=== PATIENT | female | born 1945 | race Caucasian/White ===

== ENCOUNTER 2017-03-28 17:03 | Observation (INO) | payer MEDICARE, OTHER ==
[~2017-03-28] VITALS: Ht 160 cm; Wt 94.0 kg
[2017-03-28 17:23] VITALS: BP 165/79; PULSE 90; RESP 16; TEMP 97.7
--- NOTE | 2017-03-28 17:27 | PD ---
HPI Chief Complaint: fall Time Seen by Provider: 17:19 Travel History International Travel<30 days: No Contact w/Intl Traveler<30days: No Traveled to known affect area: No History of Present Illness HPI This is a 71-year-old female who reports a history of hypertension and hyperlipidemia. She presents via EMS for evaluation after a reported mechanical fall. 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 She was at the home of the patient and she tripped and fell, striking the back of her head against the ground. There was loss of consciousness. There have been complaints of headache as well as nausea and vomiting on route. The patient is amnesia to the events. 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 She does not remember falling. She is complaining of pain to the back of her head which is aching, constant. She endorses nausea. She denies any chest pain or shortness of breath, abdominal pain, back pain, neck pain, pain in the upper or lower extremities. She reports that she takes a baby aspirin a day. Denies any other anticoagulant use. Her last tetanus vaccination is unknown. She reports that her primary care physician is Dr. Jonna Wylie. [facility] Past Medical History Narrative Medical Hyperlipidemia, hypertension Social History Alcohol Use: Yes Tobacco Use: No Allergies-Medications (Allergen,Severity, Reaction): Coded Allergies: No Known Allergies (Unverified , 03/28/17) Reported Meds & Prescriptions Reported Meds & Active Scripts Active Reported Calcium (Oyster Shell) 500 Mg Tab 500 Mg PO BID Multi Vitamin Daily (Multiple Vitamin) 1 Tab Tab 1 Tab PO BID Vitamin B-12 (Cyanocobalamin) 500 Mcg Tab 500 Mcg PO DAILY Fluticasone Nasal [place] 50 Mcg/Act Naspr 2 [place] EACH NARE DAILY Timoptic Opth Drops (Timolol Opth Drops) 0.5 % Soln 1 Drop EACH EYE BID Latanoprost Opth Drops (Latanoprost) 0.005% Drops 2 Drop EACH EYE HS Refrigerate until opened. Metformin (Metformin HCl) 1,000 Mg Tab 1,000 Mg PO BID With meals Duloxetine DR (Duloxetine HCl) 60 Mg Capdr 60 Mg PO DAILY Atorvastatin (Atorvastatin Calcium) 40 Mg Tab 40 Mg PO HS Lisinopril-Hctz 20-25 Mg Tab 1 Tab PO BID Gabapentin 300 Mg Cap 300 Mg PO BID Omeprazole 20 Mg Tab 20 Mg PO DAILY Preservision Areds (Multiple Vitamins W/ Minerals) 1 Tab 2 Tab PO DAILY Acetaminophen Pm Caplet (Acetaminophen/Diphenhydramine) 1 Each Tablet 500 Mg PO BID Vitamin D-3 (Cholecalciferol) 2,000 Unit Tab 2,000 Units PO DAILY Vitamin B-12 (Cyanocobalamin) 500 Mcg Tab 500 Mcg PO DAILY Vitamin E (Vitamin E Mixed) 400 Unit Tablet 400 Units PO DAILY Review of Systems Except as stated in HPI: all other systems reviewed are Neg Physical Exam Narrative GENERAL: Pleasant well developed well-nourished female in no acute distress answering questions appropriately, cervical collar in place. She is alert and oriented 3. SKIN: Warm and dry. HEAD: Normocephalic. There is dried blood on the occiput. Unable to fully evaluate initially. EYES: Pupils equal and round reactive to light extraocular muscles are intact. No scleral icterus. No injection or drainage. ENT: No nasal bleeding or discharge. Mucous membranes pink and moist. NECK: Trachea midline. No JVD. CARDIOVASCULAR: Regular rate and rhythm. No murmur appreciated. RESPIRATORY: No accessory muscle use. Clear to auscultation. Breath sounds equal bilaterally. GASTROINTESTINAL: Abdomen soft, non-tender, nondistended. Hepatic and splenic margins not palpable. MUSCULOSKELETAL: No obvious deformities. Cervical collar in place. NEUROLOGICAL: Awake and alert. No obvious cranial nerve deficits. Motor grossly within normal limits. Normal speech. PSYCHIATRIC: Appropriate mood and affect; insight and judgment normal. Data Data Last Documented VS Vital Signs Date Time Temp Pulse Resp B/P Pulse Ox O2 Delivery O2 Flow Rate FiO2 03/28/17 19:06 74 16 134/65 95 Room Air 03/28/17 17:[address] Cerv Spine W/O Contrast (03/28/17 ) Ct Brain W/O Iv Contrast(Rout) (03/28/17 ) Complete Blood Count With Diff (03/28/17 17:24) Basic Metabolic Panel (Bmp) (03/28/17 17:24) Act Partial Throm Time (Ptt) (03/28/17 17:24) Prothrombin Time / Inr (Pt) (03/28/17 17:24) Electrocardiogram (03/28/17 ) Ckmb (Isoenzyme) Profile (03/28/17 17:24) Magnesium (Mg) (03/28/17 17:24) Troponin I (03/28/17 17:24) Lidocai-Epi 1%-1:100,000 Inj (Xylocaine- (03/28/17 17:30) Tetanus/Diphtheria Tox Adult (Tetanus/Di (03/28/17 17:30) Ondansetron Inj (Zofran Inj) (03/28/17 17:30) Morphine Inj (Morphine Inj) (03/28/17 18:45) Ondansetron Inj (Zofran Inj) (03/28/17 18:45) Wound Care (03/28/17 19:00) Promethazine Inj (Phenergan Inj) (03/28/17 19:45) Admit Order (Ed Use Only) (03/28/17 20:14) Labs Laboratory Tests Test 03/28/17 17:30 White Blood Count 7.4 TH/MM3 Red Blood Count 4.55 MIL/MM3 Hemoglobin 11.8 GM/DL Hematocrit 37.8 % Mean Corpuscular Volume 83.0 FL Mean Corpuscular Hemoglobin 25.9 PG Mean Corpuscular Hemoglobin 31.2 % Concent Red Cell Distribution Width 23.6 % Platelet Count 229 TH/MM3 Mean Platelet Volume 7.6 FL Neutrophils (%) (Auto) 63.3 % Lymphocytes (%) (Auto) 27.1 % Monocytes (%) (Auto) 6.4 % Eosinophils (%) (Auto) 2.8 % Basophils (%) (Auto) 0.4 % Neutrophils # (Auto) 4.7 TH/MM3 Lymphocytes # (Auto) 2.0 TH/MM3 Monocytes # (Auto) 0.5 TH/MM3 Eosinophils # (Auto) 0.2 TH/MM3 Basophils # (Auto) 0.0 TH/MM3 CBC Comment DIFF FINAL Differential Comment Prothrombin Time 10.8 SEC Prothromb Time International 1.0 RATIO Ratio Activated Partial 22.4 SEC Thromboplast Time Sodium Level 138 MEQ/L Potassium Level 3.7 MEQ/L Chloride Level 101 MEQ/L Carbon Dioxide Level 25.9 MEQ/L Anion Gap 11 MEQ/L Blood Urea Nitrogen 21 MG/DL Creatinine 0.91 MG/DL Estimat Glomerular Filtration 61 ML/MIN Rate Random Glucose 217 MG/DL Calcium Level 10.1 MG/DL Magnesium Level 1.5 MG/DL Total Creatine Kinase 85 U/L Troponin I LESS THAN 0.02 NG/ML MDM Medical Decision Making Medical Screen Exam Complete: Yes Emergency Medical Condition: Yes Medical Record Reviewed: Yes Interpretation(s) CT brain reveals cephalohematoma, intracranial contents are unremarkable. CT cervical spine Differential Diagnosis Concussion, intracranial hemorrhage, skull fracture, scalp laceration, closed head injury Narrative Course This is a 71-year-old female who presents after a reported trip and fall with loss of consciousness and amnesia to the event with associated nausea and vomiting. On initial examination she is alert and oriented to person place and time, answering questions appropriately. Cervical collar is in place and there is dried blood on the occipital scalp. Plan is for CT imaging of the brain and cervical spine stat. Basic lab work, EKG have been ordered. Tetanus status updated. Zofran administered for nausea. CT the brain and cervical spine revealed no acute abnormalities. The cervical collar was removed and examination of the back and neck revealed no tenderness to palpation along the cervical thoracic or lumbar midline spine, no bruising. She does have a large occipital scalp hematoma with a 2 cm laceration. This was repaired with evaristo, she verbally consented. After the patient was moved in order to stable her wound she became nauseous and dizzy again and vomited. She was given additional Zofran. After the second dose of Zofran attempted have the patient sit on the edge of the bed but she became extremely dizzy and nauseous once again and therefore the patient will be admitted for observation. Discussed with resident Dr. Monroe who is agreeable with admission. Procedures Procedure Narrative LACERATION LOCATION: Occipital scalp LENGTH: 2 cm NUMBER OF STITCHES/EVARISTO: 7 REPAIR: The area of the laceration was prepped with Betadine and sterilely draped. The laceration was infiltrated with 1% lidocaine with epinephrine. The wound was copiously irrigated and explored without evidence of foreign body , tendon injury or neurovascular injury. The wound was closed using evaristo. This was a single layer repair. A sterile dressing was applied. The patient was advised to keep the dressing clean and dry. Patient tolerated the procedure well. Diagnosis Primary Impression: Concussion Qualified Code: S06.0X9A - Concussion, with LOC of unspecified duration, initial encounter Additional Impressions: Dizziness Nausea and vomiting Qualified Code: R11.2 - Nausea and vomiting, intractability of vomiting not specified, unspecified vomiting type Admitting Information Admitting Physician Requests: Observation Tomas Sultana Mar 28, 2017 17:27
[2017-03-28] MEDS ORDERED: ONDANSETRON HCL 4 MG/2 ML VIAL IV PUSH ONE ×2 (17:30→18:45)
[2017-03-28] MEDS ORDERED: TETANUS/DIPHTHERIA TOXOID ADULT 0.5 ML VIAL IM ONE (17:30)
[2017-03-28] MEDS ORDERED: LIDOCAINE 1%/EPINEPHrine 1:100,000 SOLN 20 ML VIAL INFIL ONE (17:30)
[2017-03-28 18:09] LABS: AUTOMATED NEUTROPHIL # 4.7 TH/MM3 (1.8-7.7); BASOPHIL % 0.4 % (0.0-2.0); EOSINOPHIL # 0.2 TH/MM3 (0-0.4); EOSINOPHIL % 2.8 % (0.0-4.0); HEMATOCRIT 37.8 % (35.0-46.0); HEMO FLAGS DIFF FINAL; LYMPH % 27.1 % (9.0-44.0); MEAN CORPUSCULAR HEMOGLOBIN 25.9 PG (27.0-34.0); MEAN CORPUSCULAR HGB CONC 31.2 % (32.0-36.0); MONO % 6.4 % (0.0-8.0); NEUT % 63.3 % (16.0-70.0); PLATELET COUNT 229 TH/MM3 (150-450); RED BLOOD COUNT 4.55 MIL/MM3 (4.00-5.30); RED CELL DISTRIBUTION WIDTH 23.6 % (11.6-17.2); WHITE BLOOD COUNT 7.4 TH/MM3 (4.0-11.0)
[2017-03-28 18:16] LABS: APTT (PATIENT) 22.4 SEC (24.3-30.1); PROTHROMBIN TIME - PATIENT 10.8 SEC (9.8-11.6)
--- NOTE | 2017-03-28 18:24 | RADRPT ---
EXAM DATE/TIME: 03/28/2017 17:46 [facility] COMPARISON: No previous studies available for comparison. INDICATIONS : Fall laceration to back of head, LOC. RADIATION DOSE: 39.17 CTDIvol (mGy) MEDICAL HISTORY : None SURGICAL HISTORY : None. ENCOUNTER: Initial ACUITY: 1 day PAIN SCALE: 5/10 LOCATION: Bilateral cranial TECHNIQUE: Multiple contiguous axial images were obtained of the head. Using automated exposure control and adj ustment of the mA and/or kV according to patient size, radiation dose was kept as low as reasonably a chievable to obtain optimal diagnostic quality images. DICOM format image data is available electro nically for review and comparison. FINDINGS: CEREBRUM: The ventricles are normal for age. No evidence of midline shift, mass lesion, hemorrhage or acute in farction. No extra-axial fluid collections are seen. POSTERIOR FOSSA: The cerebellum and brainstem are intact. The 4th ventricle is midline. The cerebellopontine angle i s unremarkable. EXTRACRANIAL: The visualized portion of the orbits is intact. SKULL: The calvaria is intact. No evidence of skull fracture. Cephalohematoma right parietal occipital reg ion. CONCLUSION: Cephalohematoma, intracranial contents unremarkable. Julio Hawkins MD FACR on March 28, 2017 at 18:16 Board Certified Radiologist. This report was verified electronically.
[2017-03-28] MEDS ORDERED: TIMO0.5S5 EACH EYE (18:28)
[2017-03-28] MEDS ORDERED: ACET25TA2 PO (18:28)
[2017-03-28] MEDS ORDERED: OCUVTAB4 PO (18:28)
[2017-03-28] MEDS ORDERED: CHOL1TAB42 PO (18:28)
[2017-03-28] MEDS ORDERED: VITA500T4 PO ×2 (18:28)
[2017-03-28] MEDS ORDERED: ATOR40TA16 PO (18:28)
[2017-03-28] MEDS ORDERED: MULT1TAB46 PO (18:28)
[2017-03-28] MEDS ORDERED: OMEP20TA PO (18:28)
[2017-03-28] MEDS ORDERED: FLUT50SP EACH NARE (18:28)
[2017-03-28] MEDS ORDERED: CALC500T35 PO (18:28)
[2017-03-28] MEDS ORDERED: LISI20TA3 PO (18:28)
[2017-03-28] MEDS ORDERED: METF1000 PO (18:28)
[2017-03-28] MEDS ORDERED: GABA300C5 PO (18:28)
[2017-03-28] MEDS ORDERED: DULO1CAP3 PO (18:28)
[2017-03-28] MEDS ORDERED: LATA0.002 EACH EYE (18:28)
[2017-03-28] MEDS ORDERED: VITA400T20 PO (18:28)
--- NOTE | 2017-03-28 18:38 | RADRPT ---
EXAM DATE/TIME: 03/28/2017 17:46 [facility] COMPARISON: No previous studies available for comparison. INDICATIONS : Fell injury to back of head with neck pain. RADIATION DOSE: 22.06 CTDIvol (mGy) MEDICAL HISTORY : None SURGICAL HISTORY : None. ENCOUNTER: Initial ACUITY: 1 day PAIN SCALE: 5/10 LOCATION: Bilateral neck TECHNIQUE: Volumetric scanning of the cervical spine was performed. Multiplanar reconstructions in the sagittal, coronal and oblique axial planes were performed. Using automated exposure control and adjustment o f the mA and/or kV according to patient size, radiation dose was kept as low as reasonably achievable to obtain optimal diagnostic quality images. DICOM format image data is available electronically f or review and comparison. FINDINGS: Patient status post anterior cervical fusion from C5 to C7. C1 and C2 are intact. C2-C3: The bony spinal canal is normal in size. No evidence of disc bulge or herniation. The neural forami na are bilaterally patent. C3-C4: There is mild uncinate ridging with minimal neural foraminal encroachment on the left. C4-C5: Moderate bilateral neural foraminal encroachment is worse, more so on the right than the left. C5-C6/ C6-C7: Fused. C7-T1: Unremarkable. CONCLUSION: Degenerative changes without fracture. Julio Hawkins MD FACR on March 28, 2017 at 18:23 Board Certified Radiologist. This report was verified electronically.
[2017-03-28 18:39] LABS: ANION GAP 11 MEQ/L (5-15); BICARBONATE 25.9 MEQ/L (21.0-32.0); BLOOD UREA NITROGEN 21 MG/DL (7-18); CHLORIDE 101 MEQ/L (98-107); CREATINE KINASE 85 U/L (26-192); GLOMERULAR FILTRATION RATE 61 ML/MIN (>89); MAGNESIUM 1.5 MG/DL (1.5-2.5); POTASSIUM 3.7 MEQ/L (3.5-5.1); SODIUM (NA) 138 MEQ/L (136-145)
[2017-03-28 18:41] VITALS: BP 144/64; PULSE 71; RESP 18; O2SAT 97
[2017-03-28] MEDS ORDERED: MORPHINE SULFATE 4 MG/ML INJ IV PUSH ONE (18:45)
[2017-03-28 19:06] VITALS: BP 134/65; PULSE 74; RESP 16; O2SAT 95
[2017-03-28] MEDS ORDERED: PROMETHAZINE INJ 25 MG/ML VIAL IM ONE (19:45)
[2017-03-28] MEDS ORDERED: SODIUM CHLORIDE 0.9% FLUSH 10 ML FLUSH IV FLUSH SCH (21:00)
[2017-03-28] MEDS ORDERED: SODIUM CHLORIDE 0.9% FLUSH 10 ML FLUSH IV FLUSH PRN ×2 (21:00→23:00)
[2017-03-28 21:06] VITALS: BP 134/67; PULSE 78; RESP 18; O2SAT 97
[2017-03-28] MEDS: SODIUM CHLOR 0.9% 1000 ML INJ 1,000 ML IV SCH (21:22)
--- NOTE | 2017-03-28 21:43 | HHI.HP ---
[facility] Service Family Medicine Primary Care Physician Non-Staff Admission Diagnosis concussion, nausea and vomiting, dizziness Diagnoses: International Travel<30 Days: No Contact w/Intl Traveler<30days: No Known Affected Area: No History of Present Illness 71 year old female with past history of DM II, hypertension and hyperlipidemia presents with head injury from a fall. Patient in unable to provide events of the trauma due to inability to recall directly prior to or after the incident. 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 She stated "someone" told her that she fell over and hit the back of her head. 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 She was at the home of the patient and she tripped and fell, striking the back of her head against the ground. There was loss of consciousness." While in the ER she had complained of nausea, dizziness and was vomiting. Upon admission she notes some minor dizziness, nausea only upon sitting up, and cessation of vomiting, mild constant throbbing pain exteriorly in occiputal region at location of laceration. No chest pain, shortness of breath, diaphoresis, headache, blurred vision, diplopia, weakness, numbness or tingling in extremities. (Veto Valentin MD R1) Review of Systems Constitutional: COMPLAINS OF: Dizziness, DENIES: Diaphoretic episodes, Fatigue , Fever, Weight gain, Weight loss, Chills, Change in appetite, Night Sweats Endocrine: DENIES: Heat/cold intolerance, Polydipsia, Polyuria, Polyphagia Eyes: DENIES: Blurred vision, Diplopia, Eye inflammation, Eye pain, Vision loss , Photosensitivity, Double Vision Ears, nose, mouth, throat: DENIES: Tinnitus, Hearing loss, Vertigo, Nasal discharge, Oral lesions, Throat pain, Hoarseness, Ear Pain, Running Nose, Epistaxis, Sinus Pain, Toothache, Odynophagia Respiratory: DENIES: Apneas, Cough, Snoring, Wheezing, Hemoptysis, Sputum production, Shortness of breath Cardiovascular: DENIES: Chest pain, Palpitations, Syncope, Dyspnea on Exertion , PND, Lower Extremity Edema, Orthopnea, Claudication Gastrointestinal: COMPLAINS OF: Nausea (Nausea when seated up), DENIES: Abdominal pain, Black stools, Bloody stools, Constipation, Diarrhea, Vomiting, Difficulty Swallowing, Anorexia Genitourinary: DENIES: Abnormal vaginal bleeding, Dysmenorrhea, Dyspareunia, Sexual dysfunction, Urinary frequency, Urinary incontinence, Urgency, Hematuria , Dysuria, Nocturia, Vaginal discharge Musculoskeletal: DENIES: Joint pain, Muscle aches, Stiffness, Joint Swelling, Back pain, Neck pain Integumentary: DENIES: Abnormal pigmentation, Pruritus, Rash, Nail changes, Breast masses, Breast skin changes, Nipple discharge Hematologic/lymphatic: DENIES: Bruising, Lymphadenopathy Immunologic/allergic: DENIES: Eczema, Urticaria Neurologic: DENIES: Abnormal gait, Headache, Localized weakness, Paresthesias, Seizures, Speech Problems, Tremor, Poor Balance Psychiatric: DENIES: Anxiety, Confusion, Mood changes, Depression, Hallucinations, Agitation, Suicidal Ideation, Homicidal Ideation, Delusions Other + anterograde and retrograde amnesia as noted in HPI, dizziness. Alert and oriented x 3 (Veto Valentin MD R1) Past Family Social History Past Medical History Diabetes Mellitus type 2 Hypertension Hyperlipidemia Anemia Glaucoma Past Surgical History Right rotator cuff repair Discectomy "2 discs in neck with metal plate installed" Hemorrhoidectomy Reported Medications Reported Meds & Active Scripts Active Reported Calcium (Oyster Shell) 500 Mg Tab 500 Mg PO BID Multi Vitamin Daily (Multiple Vitamin) 1 Tab Tab 1 Tab PO BID Vitamin B-12 (Cyanocobalamin) 500 Mcg Tab 500 Mcg PO DAILY Fluticasone Nasal [place] 50 Mcg/Act Naspr 2 [place] EACH NARE DAILY Timoptic Opth Drops (Timolol Opth Drops) 0.5 % Soln 1 Drop EACH EYE BID Latanoprost Opth Drops (Latanoprost) 0.005% Drops 2 Drop EACH EYE HS Refrigerate until opened. Metformin (Metformin HCl) 1,000 Mg Tab 1,000 Mg PO BID With meals Duloxetine DR (Duloxetine HCl) 60 Mg Capdr 60 Mg PO DAILY Atorvastatin (Atorvastatin Calcium) 40 Mg Tab 40 Mg PO HS Lisinopril-Hctz 20-25 Mg Tab 1 Tab PO BID Gabapentin 300 Mg Cap 300 Mg PO BID Omeprazole 20 Mg Tab 20 Mg PO DAILY Preservision Areds (Multiple Vitamins W/ Minerals) 1 Tab 2 Tab PO DAILY Acetaminophen Pm Caplet (Acetaminophen/Diphenhydramine) 1 Each Tablet 500 Mg PO BID Vitamin D-3 (Cholecalciferol) 2,000 Unit Tab 2,000 Units PO DAILY Vitamin B-12 (Cyanocobalamin) 500 Mcg Tab 500 Mcg PO DAILY Vitamin E (Vitamin E Mixed) 400 Unit Tablet 400 Units PO DAILY (Veto Valentin MD R1) Allergies: Coded Allergies: No Known Allergies (Unverified , 03/28/17) Family History Mother had endometrial cancer Father CVA at age 80 Brother Quadruple bypass at 69 Social History Alcohol: Drinks 1-2 beers/day Smoking: Smoked 1-1.5 packs per day for 20 years, stopped 30 years ago Drugs: Never used (Veto Valentin MD R1) Physical Exam Vital Signs Vital Signs Date Time Temp Pulse Resp B/P Pulse Ox O2 Delivery O2 Flow Rate FiO2 03/28/17 21:06 78 18 134/67 97 Nasal Cannula 2 03/28/17 19:06 74 16 134/65 95 Room Air 03/28/17 18:41 71 18 144/64 97 Room Air 03/28/17 17:23 97.7 90 16 165/79 Physical Exam GENERAL: This is a well-nourished, well-developed patient, in no apparent distress. SKIN: No rashes, ecchymoses or lesions. Cool and dry. HEAD: Normocephalic. Dried blood in occipital region, stapled, approximately 3cm laceration in mid superior occipital region with underlaying hematoma. Not actively bleeding. EYES: Pupils equal round and reactive. Extraocular motions intact. No scleral icterus. No injection or drainage. ENT: Nose without bleeding, purulent drainage or septal hematoma. Throat without erythema, tonsillar hypertrophy or exudate. Uvula midline. Airway patent. NECK: Trachea midline. No JVD or lymphadenopathy. Supple, nontender, no meningeal signs. CARDIOVASCULAR: Regular rate and rhythm without murmurs, gallops, or rubs. RESPIRATORY: Clear to auscultation. Breath sounds equal bilaterally. No wheezes , rales, or rhonchi. GASTROINTESTINAL: Abdomen soft, non-tender, nondistended. No hepato-splenomegaly , or palpable masses. No guarding. MUSCULOSKELETAL: Extremities without clubbing, cyanosis, or edema. No joint tenderness, effusion, or edema noted. No calf tenderness. NEUROLOGICAL: Awake and alert. Cranial nerves II through XII intact. Motor and sensory grossly within normal limits. Five out of 5 muscle strength in all muscle groups. Normal speech. Laboratory Laboratory Tests Test 03/28/17 17:30 White Blood Count 7.4 Red Blood Count 4.55 Hemoglobin 11.8 Hematocrit 37.8 Mean Corpuscular Volume 83.0 Mean Corpuscular Hemoglobin 25.9 Mean Corpuscular Hemoglobin 31.2 Concent Red Cell Distribution Width 23.6 Platelet Count 229 Mean Platelet Volume 7.6 Neutrophils (%) (Auto) 63.3 Lymphocytes (%) (Auto) 27.1 Monocytes (%) (Auto) 6.4 Eosinophils (%) (Auto) 2.8 Basophils (%) (Auto) 0.4 Neutrophils # (Auto) 4.7 Lymphocytes # (Auto) 2.0 Monocytes # (Auto) 0.5 Eosinophils # (Auto) 0.2 Basophils # (Auto) 0.0 CBC Comment DIFF FINAL Differential Comment Prothrombin Time 10.8 Prothromb Time International 1.0 Ratio Activated Partial 22.4 Thromboplast Time Sodium Level 138 Potassium Level 3.7 Chloride Level 101 Carbon Dioxide Level 25.9 Anion Gap 11 Blood Urea Nitrogen 21 Creatinine 0.91 Estimat Glomerular Filtration 61 Rate Random Glucose 217 Calcium Level 10.1 Magnesium Level 1.5 Total Creatine Kinase 85 Troponin I LESS THAN 0.02 (Veto Valentin MD R1) Result Diagram: 03/28/17 1730 03/28/17 1730 Assessment and Plan Assessment and Plan 71 year old female with history of DM II, hyperlipidemia, hypertension with traumatic injury to occiput following fall. Due to amnesia surrounding incident , unable to discern exact conditions surrounding the fall. Nausea, vomiting and dizziness which persisted in the ER following Zofran administration, but had decreased at time of admission. No chest pain, shortness of breath, diaphoresis , headache, blurred vision, diplopia, weakness, numbness or tingling in extremities. CT unremarkable for intracranial abnormalities. Head laceration - [place] in place - Keep clean and dry Concussion - Q4 neuro checks Possible Syncope - EKG normal sinus in ED - Unremarkable Head CT - F/U Carotid ultrasound - F/U Transthoracic cardiac ultrasound - F/U Troponin - F/U EEG - F/U TSH - FU PT recommendations DM II - Low dose sliding scale - Home metformin held Dizziness -Fall precautions Hypertension - Continue home medications FEN - NS @ 125/hr - Treat electrolyte abnormalities as needed - ADA Diet DVT - Heparin Code Status Full (Veto Valentin MD R1) Attending Attestation THIS CASE WAS DISCUSSED WITH THE RESIDENT PHYSICIAN. I HAVE REVIEWED THE RECORD AND AGREE WITH THE ABOVE NOTE AND PLAN OF CARE WAS DISCUSSED. I HAVE AUTHORIZED THE ORDER FOR PLACEMENT IN OUT-PATIENT OBSERVATION STATUS. ( Ruth Kat MD) Problem List: (1) Concussion Status: Acute (2) Laceration of head Status: Acute (3) DM (diabetes mellitus), type 2 Status: Chronic (4) Nausea and vomiting Status: Acute (5) Dizziness Status: Acute (Veto Valentin MD R1) Problem Qualifiers (1) Concussion: Qualified Code: S06.0X9A - Concussion, with LOC of unspecified duration, initial encounter (2) Laceration of head: Qualified Code: S01.81XA - Laceration of other part of head without foreign body, initial encounter (3) DM (diabetes mellitus), type 2: Qualified Code: E11.9 - Type 2 diabetes mellitus without complication, without long-term current use of insulin (4) Nausea and vomiting: Qualified Code: R11.2 - Nausea and vomiting, intractability of vomiting not specified, unspecified vomiting type Veto Valentin MD R1 Mar 28, 2017 21:43 Ruth Kat MD Mar 29, 2017 12:52
[2017-03-28 22:15] VITALS: O2SAT 98
[2017-03-28] MEDS ORDERED: BISACODYL 10 MG SUPP RECTAL PRN (23:00)
[2017-03-28] MEDS ORDERED: MAGNESIUM HYDROXIDE SUSP 30 ML CUP PO PRN (23:00)
[2017-03-28] MEDS ORDERED: NALOXONE HCL 0.4 MG/ML AMP IV PRN (23:00)
[2017-03-28] MEDS ORDERED: HEPARIN SODIUM - SQ 10,000 UNITS/ML VIAL SQ SCH (23:00)
[2017-03-28] MEDS ORDERED: LACTULOSE SYRUP 20 GM/30 ML CUP PO PRN (23:00)
[2017-03-28] MEDS ORDERED: SENNOSIDES 8.6 MG TAB PO PRN (23:00)
[2017-03-28 23:37] VITALS: BP 165/70; PULSE 70; RESP 18; TEMP 98.5; O2SAT 97
[2017-03-29] MEDS ORDERED: GLUCAGON 1 MG/ML VIAL OTHER PRN (00:15)
[2017-03-29] MEDS ORDERED: DEXTROSE 50% IN WATER 50 ML VIAL(D50) IV PUSH PRN (00:15)
[2017-03-29] MEDS ORDERED: ENALAPRILAT 1.25 MG/ML VIAL IV PRN (00:30)
[2017-03-29] MEDS ORDERED: ACETAMINOPHEN 325 MG TAB PO PRN (00:30)
[2017-03-29] MEDS ORDERED: ONDANSETRON HCL 4 MG/2 ML VIAL IV PUSH PRN (03:30)
[2017-03-29] MEDS: SODIUM CHLOR 0.9% 1000 ML INJ 1,000 ML IV SCH (04:43)
[2017-03-29 05:01] VITALS: BP 149/68; PULSE 69; RESP 18; O2SAT 92
[2017-03-29] MEDS ORDERED: INSULIN ASPART SUPPLEMENTAL SCALE SQ SCH (07:00)
[2017-03-29 07:21] LABS: BICARBONATE 22.7 MEQ/L (21.0-32.0)
[2017-03-29 07:52] LABS: AUTOMATED NEUTROPHIL # 5.8 TH/MM3 (1.8-7.7); BASOPHIL % 0.2 % (0.0-2.0); EOSINOPHIL # 0.1 TH/MM3 (0-0.4); EOSINOPHIL % 0.9 % (0.0-4.0); HEMATOCRIT 35.6 % (35.0-46.0); HEMO FLAGS DIFF FINAL; LYMPH % 17.7 % (9.0-44.0); LYMPHOCYTE # 1.4 TH/MM3 (1.0-4.8); MEAN CELL VOLUME 82.5 FL (80.0-100.0); MEAN CORPUSCULAR HEMOGLOBIN 26.3 PG (27.0-34.0); MEAN CORPUSCULAR HGB CONC 31.8 % (32.0-36.0); MONO % 8.6 % (0.0-8.0); NEUT % 72.6 % (16.0-70.0); PLATELET COUNT 216 TH/MM3 (150-450); RED BLOOD COUNT 4.31 MIL/MM3 (4.00-5.30); RED CELL DISTRIBUTION WIDTH 23.4 % (11.6-17.2)
[2017-03-29 07:55] VITALS: BP 140/65; PULSE 73; RESP 17; TEMP 97.8; O2SAT 97
--- NOTE | 2017-03-29 08:39 | HHI.DCPOC ---
Discharge Care Plan Diagnosis: (1) Concussion (2) Laceration of head (3) Dizziness Goals to Promote Your Health * To prevent worsening of your condition and complications * To maintain your health at the optimal level Directions to Meet Your Goals Take your medications as prescribed Follow your dietary instruction Follow activity as directed Keep your appointments as scheduled Take your immunizations and boosters as scheduled If your symptoms worsen call your PCP, if no PCP go to Urgent Care Center or Emergency Room Smoking is Dangerous to Your Health. Avoid second hand smoke Call the 24-hour hour crisis hotline for domestic abuse at Gail Walls MD R2 Mar 29, 2017 08:39
[2017-03-29] MEDS ORDERED: DOCUSATE SODIUM 50 MG/SENNA 8.6 MG TAB PO SCH (09:00)
[2017-03-29] MEDS ORDERED: PANTOPRAZOLE SOD 20 MG DELAYED RELEASE TAB PO SCH (09:00)
[2017-03-29] MEDS ORDERED: HYDROCHLOROTHIAZIDE 25 MG TAB PO SCH (09:00)
[2017-03-29] MEDS ORDERED: TIMOLOL MALEATE 0.5% OPHT SOLN 5 ML BTL EACH EYE SCH (09:00)
[2017-03-29] MEDS ORDERED: DULoxetine HCl DR 60 MG CAP PO SCH (09:00)
[2017-03-29] MEDS ORDERED: GABAPENTIN 300 MG CAP PO SCH (09:00)
[2017-03-29] MEDS ORDERED: SODIUM CHLORIDE 0.9% FLUSH 10 ML FLUSH IV FLUSH SCH (09:00)
[2017-03-29] MEDS ORDERED: LISINOPRIL 20 MG TAB PO SCH (09:00)
[2017-03-29 11:01] VITALS: O2SAT 97
[2017-03-29 12:21] VITALS: BP_SYST 128; BP_SYST 131; BP_SYST 138; BP_DIAS 60; BP_DIAS 61; PULSE 74; RESP 18; TEMP 98.7; O2SAT 93
--- NOTE | 2017-03-29 15:30 | EKG ---
Date Performed: 03/29/2017 Time Performed: 05:32:26 PTAGE: 71 years EKG: Sinus rhythm NORMAL ECG PREVIOUS TRACING : 03/28/2017 23.34 Compared to prior tracing no significant change DOCTOR: Osmin Landaverde Interpretating Date/Time 03/29/2017 15:29:13
--- NOTE | 2017-03-29 16:04 | EKG ---
Date Performed: 03/28/2017 Time Performed: 23:34:05 PTAGE: 71 years EKG: Sinus rhythm NORMAL ECG PREVIOUS TRACING : 03/28/2017 18.36 Compared to prior tracing no significant change DOCTOR: Osmin Landaverde Interpretating Date/Time 03/29/2017 16:02:54
--- NOTE | 2017-03-29 16:25 | EKG ---
Date Performed: 03/28/2017 Time Performed: 18:36:59 PTAGE: 71 years EKG: Sinus rhythm NORMAL ECG NO PREVIOUS TRACING DOCTOR: Osmin Landaverde Interpretating Date/Time 03/29/2017 16:24:50
[2017-03-29] MEDS ORDERED: ATORVASTATIN 40 MG TAB PO SCH (21:00)
[2017-03-29] MEDS ORDERED: LATANOPROST 0.005% OPHT SOLN 2.5 ML BTL EACH EYE SCH (21:00)
== END 2017-03-29 13:58 | disposition home or self-care (01) ==
LOC: NEPC 17:03 → NEDA 20:15 → NEPFCDU 21:54
PROVIDERS: ADMIT Family Medicine; ATTEND Family Medicine
DX: S06.2X9A Diffuse traumatic brain injury with loss of consciousness of unspecified duration, initial encounter (principal); S01.81XA Laceration without foreign body of other part of head, initial encounter; R11.2 Nausea with vomiting, unspecified; R41.3 Other amnesia; R42 Dizziness and giddiness; M54.2 Cervicalgia; I10 Essential (primary) hypertension; E78.5 Hyperlipidemia, unspecified; E11.9 Type 2 diabetes mellitus without complications; M47.892 Other spondylosis, cervical region; H40.9 Unspecified glaucoma; Z79.84 Long term (current) use of oral hypoglycemic drugs; Z79.899 Other long term (current) drug therapy; Z87.891 Personal history of nicotine dependence; Z98.1 Arthrodesis status; W01.198A Fall on same level from slipping, tripping and stumbling with subsequent striking against other object, initial encounter
CPT/HCPCS: 12001; 70450; 72125; 80048; 82550; 82948; 83735; 84443; 84484; 85025; 85610; 85730; 90471; 90714; 93005; 96372; 96374; 96375; 96376; 97163; 99285; G0378; G8987; G8988; J2270; J2405; J2550; J7030